=== PATIENT | female | born 1945 | race Caucasian/White ===

== ENCOUNTER 2021-07-03 11:54 | Emergency (ER) | payer OTHER ==
[2021-07-03 12:35] VITALS: BP 143/55; PULSE 70; TEMP 97.3; BMI 25.7
[2021-07-03] MEDS ORDERED: KETOROLAC TROMETHAMINE 30 MG/1 ML VIAL IM ONE (13:40)
[2021-07-03] MEDS ORDERED: DIPHTH,PERTUSS(ACELL),TET 0.5 ML DISP.SYRIN IM ONE ×2 (13:40)
== END 2021-07-03 14:00 | disposition home or self-care (01) ==
LOC: JERFT 11:54
PROC: 3E0234Z Introduction of Serum, Toxoid and Vaccine into Muscle, Percutaneous Approach (ICD-10-PCS; principal; 2021-07-03)
PROC: 3E0233Z Introduction of Anti-inflammatory into Muscle, Percutaneous Approach (ICD-10-PCS; 2021-07-03)
PROC: 0HQFXZZ Repair Right Hand Skin, External Approach (ICD-10-PCS; 2021-07-03)
DX: S61.001A Unspecified open wound of right thumb without damage to nail, initial encounter (principal); W26.0XXA Contact with knife, initial encounter
CPT/HCPCS: 12001-25; 90471; 90715; 96372; 99284-25